=== PATIENT | female | born 1995 ===

== ENCOUNTER 2017-10-04 13:57 | Inpatient (IN) | payer OTHER ==
[~2017-10-04] VITALS: Ht 147.3 cm; Wt 3.2 kg
[2017-10-04] MEDS ORDERED: PRENATAL 19 TA1 EAC1 PO (15:44)
== END 2017-10-07 14:47 | disposition home or self-care, planned readmission (81) | DRG 766 ==
LOC: LDR 13:57 → OB/GYN 13:57 → LDR 16:06 → O/R 19:59 → LDR 10-05 00:48 → OB/GYN 10-05 14:04
PROVIDERS: Specialist
PROC: 3E033VJ Introduction of Other Hormone into Peripheral Vein, Percutaneous Approach (ICD-10-PCS; 2017-10-04)
PROC: 10907ZC Drainage of Amniotic Fluid, Therapeutic from Products of Conception, Via Natural or Artificial Opening (ICD-10-PCS; 2017-10-04)
PROC: 4A033R1 Measurement of Arterial Saturation, Peripheral, Percutaneous Approach (ICD-10-PCS; 2017-10-04)
PROC: 4A1HXCZ Monitoring of Products of Conception, Cardiac Rate, External Approach (ICD-10-PCS; 2017-10-04)
PROC: 10D00Z1 Extraction of Products of Conception, Low, Open Approach (ICD-10-PCS; principal; 2017-10-04 18:00)
DX: O65.4 Obstructed labor due to fetopelvic disproportion, unspecified (principal); O24.420 Gestational diabetes mellitus in childbirth, diet controlled; Z3A.39 39 weeks gestation of pregnancy; Z37.0 Single live birth

== ENCOUNTER 2020-11-27 07:49 | Inpatient (IN) | payer OTHER ==
[~2020-11-27] VITALS: Ht 147.3 cm; Wt 2.3 kg
[~2020-11-27 07:49] MED LIST: PRENATAL 19 TA1 EAC1 PO
[2020-11-27] MEDS ORDERED: CHILDREN'S ASPI81 MG PO (08:50)
[2020-11-27] MEDS ORDERED: IRON236 MG PO (08:50)
[2020-11-27] MEDS ORDERED: FOLIC ACID1 MG (11:45)
== END 2020-11-30 15:38 | disposition home or self-care (01) | DRG 788 ==
LOC: LDR 07:49 → OB/GYN 07:49 → O/R 10:27 → OB/GYN 13:47
PROVIDERS: ADMIT Specialist; ATTEND Specialist
PROC: 4A1HXFZ Monitoring of Products of Conception, Cardiac Rhythm, External Approach (ICD-10-PCS; 2020-11-27)
PROC: 10D00Z1 Extraction of Products of Conception, Low, Open Approach (ICD-10-PCS; principal; 2020-11-27 10:00)
DX: O34.211 Maternal care for low transverse scar from previous cesarean delivery (principal); O24.420 Gestational diabetes mellitus in childbirth, diet controlled; Z3A.36 36 weeks gestation of pregnancy; Z37.0 Single live birth